=== PATIENT | female | born 1960 | race Caucasian/White ===

== ENCOUNTER 2017-12-26 08:02 | Observation (INO) ==
[2017-12-26] MEDS ORDERED: Ipratropium/Albuterol Neb 3 ML IH ONE ×2 (08:25→09:43)
[2017-12-26] MEDS ORDERED: methylPREDNISolone 125 MG/2 ML VIAL IM ONE (08:25)
--- NOTE | 2017-12-26 09:00 | Emergency Department Note ---
Disposition Clinical Impression: Bronchitis Dyspnea Qualifiers: Dyspnea type: shortness of breath Qualified Code(s): R06.02 - Shortness of breath; R06.00 - Dyspnea, unspecified; R06.01 - Orthopnea Disposition: Admitted As Inpatient Condition: Fair Forms: ED Satisfaction Letter SOB HPI - General Chief Complaint: ED Shortness of Breath/Dyspnea Stated Complaint: KATH Time Seen by Provider: 12/26/17 08:06 Source: patient Mode of arrival: private vehicle Limitations: no limitations Nursing Notes Reviewed: Yes Vital Signs Reviewed: Yes - History of Present Illness Pt Subjective Complaint: shortness of breath, cough Onset (ago): week(s) (2) Context: recent illness ("Bronchitis" Dx a week ago, Rx Prednisone, Albuterol and Zpack - completed) Severity: moderate Consistency/Duration: constant Improves with: nothing Worsens with: coughing Known history of: other (none) Associated symptoms: Reports: cough, wheezing, sputum production. Denies: chest pain, pain with inspiration, fever, orthopnea, lower extremity pain, polyuria, polydipsia, parasthesias, palpitations, hemoptysis, diaphoresis, nausea/vomiting, syncope, abdominal pain, rash, sense of impending doom, other Treatment prior to arrival: bronchodilator Cough present: Yes Cough Description: Voluntary, Involuntary, Productive, Hacking, Strong, Rattling , Wheezy Cough Frequency: Continuous Sputum production: Yes Sputum Amount: Small Sputum Color: Yellow - Related Data Home oxygen amount: none Home Medications Medication Instructions Recorded Confirmed ALPRAZolam [Xanax 0.5 MG Tablet] 0.5 mg PO HS 12/26/17 12/26/17 Albuterol Sulfate [Proair Hfa] 1 - 2 puff IH Q4-6H PRN 12/26/17 12/26/17 Allergies Allergy/AdvReac Type Severity Reaction Status Date / Time codeine AdvReac Itching Verified 12/26/17 10:54 All systems ED: reviewed and negative except as stated. Review of Systems: As Per HPI Constitutional: Denies: fever, chills, weakness, weight change, night sweats Eyes: Denies: eye pain, eye discharge, vision change ENT ED: Denies: ear pain, congestion Cardiovascular: Reports: dyspnea on exertion. Denies: chest pain, palpitations , orthopnea, edema, syncope Respiratory: Reports: as per HPI, cough, dyspnea, wheezes, sputum production. Denies: hemoptysis, stridor Gastrointestinal: Denies: abdominal pain, nausea, vomiting, diarrhea Musculoskeletal: Denies: back pain, neck pain, joint swelling Neurological: Denies: headache, weakness, numbness, paresthesias Psychiatric: Reports: anxiety Endocrine: Reports: fatigue Hematological/Lymphatic: Denies: easy bleeding, easy bruising Past Medical History - Past Medical History Attestation: Yes The following information was validated with the patient. 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 Absent: scleral icterus, conjunctival injection, periorbital swelling - ENT ENT exam: mucous membranes moist - Neck Neck exam: Present: normal inspection, full ROM, trachea midline. Absent: tenderness, meningismus, lymphadenopathy - Chest Chest inspection: Present: normal inspection, symmetric chest wall rise - Respiratory Respiratory exam: Present: wheezes, prolonged expiratory phase. Absent: respiratory distress, stridor, accessory muscle use - Expanded Respiratory Exam Location: wheezes: Left, Right, Upper - Cardiovascular Cardiovascular exam: Present: normal rhythm, tachycardia, normal heart sounds. Absent: systolic murmur, diastolic murmur - Extremities Exam Extremities exam: Present: normal inspection, full ROM, normal capillary refill. Absent: pedal edema, calf tenderness - Back Exam Back exam: Present: normal inspection - Neurological Exam Neurological exam: Present: alert, oriented X3, CN II-XII intact, normal gait - Psychiatric Psychiatric exam: Present: normal affect, anxious - Skin Skin exam: Present: warm, dry, intact, normal color Course Vital Signs Temperature 98 F 12/26/17 08:03 Pulse Rate 117 12/26/17 08:03 Respiratory Rate 20 12/26/17 08:03 Blood Pressure 152/86 12/26/17 08:03 O2 Sat by Pulse Oximetry 94 12/26/17 08:03 Temperature 98 F 12/26/17 08:03 Pulse Rate 103 12/26/17 08:44 Respiratory Rate 20 12/26/17 08:44 Blood Pressure 103/73 12/26/17 08:44 O2 Sat by Pulse Oximetry 99 12/26/17 08:44 Oxygen Delivery Oxygen Delivery Aerosol Mask Shortness of Breath/Dyspnea - Medical Records Medical records reviewed: Yes I reviewed the patient's medical records. - Lab Data Lab results reviewed: Yes I reviewed the patient's lab results. Lab results narrative: Laboratory Last Values WBC 16.1 K/mcL (4.3-11.1) H 12/26/17 10:19 RBC 5.10 M/mcL (3.82-4.97) H 12/26/17 10:19 Hgb 15.6 g/dL (11.5-15.4) H 12/26/17 10:19 Hct 46.5 % (35.3-44.9) H 12/26/17 10:19 MCV 91.2 fL (83.0-100.0) 12/26/17 10:19 MCH 30.6 pg (28.0-33.3) 12/26/17 10:19 MCHC 33.5 g/dL (31.6-35.5) 12/26/17 10:19 RDW 14.0 % (11.5-14.5) 12/26/17 10:19 Plt Count 281 K/mcL (140-400) 12/26/17 10:19 MPV 11.1 fL (9.4-12.4) 12/26/17 10:19 Immature Gran % 0.4 % (0-4) 12/26/17 10:19 Seg Neutrophils % 75.3 % 12/26/17 10:19 Lymphocytes % 14.4 % 12/26/17 10:19 Monocytes % 2.8 % 12/26/17 10:19 Eosinophils % 6.5 % 12/26/17 10:19 Basophils % 0.6 % 12/26/17 10:19 Neutrophils # 12.1 K/mcL (1.6-8.9) H 12/26/17 10:19 Lymphocytes # 2.3 K/mcL (0.6-4.6) 12/26/17 10:19 Monocytes # 0.5 K/mcL (0.0-1.3) 12/26/17 10:19 Eosinophils # 1.0 K/mcL (0.0-0.6) H 12/26/17 10:19 Basophils # 0.1 K/mcL (0.0-0.2) 12/26/17 10:19 D-Dimer 429 ng/mLFEU (0-500) 12/26/17 10:19 Sodium 139 mEq/L (136-145) 12/26/17 10:19 Potassium 3.9 mEq/L (3.5-5.1) 12/26/17 10:19 Chloride 106 mEq/L (98-107) 12/26/17 10:19 Carbon Dioxide 25 mEq/L (23-29) 12/26/17 10:19 BUN 10 mg/dL (6-20) 12/26/17 10:19 Creatinine 0.59 mg/dL (0.60-1.20) L 12/26/17 10:19 Est GFR ( Amer) > 60 (> 60) 12/26/17 10:19 Est GFR (Non-Af Amer) > 60 (> 60) 12/26/17 10:19 BUN/Creatinine Ratio 17 (6-26) 12/26/17 10:19 Glucose 148 mg/dL (70-105) H 12/26/17 10:19 Calculated Osmolality 290 (280-300) 12/26/17 10:19 Lactic Acid 1.4 mmol/L (0.5-2.2) 12/26/17 10:18 Calcium 9.7 mg/dL (8.6-10.3) 12/26/17 10:19 Troponin I < 0.03 ng/mL (< 0.04) 12/26/17 10:19 B-Natriuretic Peptide 10 pg/mL (Less than 100) 12/26/17 10:19 - Radiology Data Radiology results reviewed: Yes I reviewed the patient's radiology results. Chest X-Ray 12/26/17 08:27 IMPRESSION: No acute process. D/ / Stu Martinez MD / Stu Martinez MD Interpreting Provider: Stu Martinez MD - EKG Data EKG attestation: Yes I reviewed and interpreted this EKG. EKG shows normal: Reports: sinus rhythm Rate: Reports: normal Rhythm: Reports: NSR [place]/QRS: Reports: normal When compared to previous EKG there are: previous EKG unavailable Interpretation: Reports: normal EKG
[2017-12-26] MEDS ORDERED: 0.9 % Sodium Chloride 1,000 ML IVC ONE ×2 (09:43→12:35)
[2017-12-26] MEDS ORDERED: Levofloxacin 750 MG/150 ML 750 MG/150 ML BAG IVPB ONE (09:43)
--- NOTE | 2017-12-26 09:53 | Emergency Department Note ---
Disposition Clinical Impression: Dyspnea, Bronchitis Disposition: Admitted As Inpatient Condition: Fair General Adult HPI - General Chief complaint: ED Shortness of Breath/Dyspnea Stated complaint: KATH Time Seen by Provider: 12/26/17 08:06 Source: patient Limitations: no limitations - History of Present Illness Pain Scale: 0 - Related Data Home Medications Medication Instructions Recorded Confirmed ALPRAZolam [Xanax 0.5 MG Tablet] 0.5 mg PO HS 12/26/17 12/26/17 Albuterol Sulfate [Proair Hfa] 1 - 2 puff IH Q4-6H PRN 12/26/17 12/26/17 Allergies Allergy/AdvReac Type Severity Reaction Status Date / Time codeine AdvReac Itching Verified 12/26/17 10:54 Past Medical History - Past Medical History Medical history: Reports: no medical history - Social History Smoking Status: Current every day smoker Smokeless Tobacco Status: No Alcohol use: Reports: none Drug use: Reports: none Physical Exam - General Limitations: no limitations General appearance: alert, in distress Course Vital Signs Temperature 98 F 12/26/17 08:03 Pulse Rate 117 12/26/17 08:03 Respiratory Rate 20 12/26/17 08:03 Blood Pressure 152/86 12/26/17 08:03 O2 Sat by Pulse Oximetry 94 12/26/17 08:03 Temperature 98.1 F 12/26/17 13:38 Pulse Rate 104 12/26/17 13:38 Respiratory Rate 18 12/26/17 13:38 Blood Pressure 120/75 12/26/17 13:38 O2 Sat by Pulse Oximetry 92 12/26/17 13:38 Oxygen Delivery Oxygen Delivery Room Air,Nasal Cannula Medical Decision Making - Lab Data Result diagrams: 12/26/17 10:19 12/26/17 10:19 Lab Results 12/26/17 12/26/17 12/26/17 Range/Units 10:18 10:19 10:19 WBC 16.1 H (4.3-11.1) K/mcL RBC 5.10 H (3.82-4.97) M/mcL Hgb 15.6 H (11.5-15.4) g/dL Hct 46.5 H (35.3-44.9) % MCV 91.2 (83.0-100.0) fL MCH 30.6 (28.0-33.3) pg MCHC 33.5 (31.6-35.5) g/dL RDW 14.0 (11.5-14.5) % Plt Count 281 (140-400) K/mcL MPV 11.1 (9.4-12.4) fL Immature Gran % 0.4 (0-4) % Seg Neutrophils % 75.3 % Lymphocytes % 14.4 % Monocytes % 2.8 % Eosinophils % 6.5 % Basophils % 0.6 % Neutrophils # 12.1 H (1.6-8.9) K/mcL Lymphocytes # 2.3 (0.6-4.6) K/mcL Monocytes # 0.5 (0.0-1.3) K/mcL Eosinophils # 1.0 H (0.0-0.6) K/mcL Basophils # 0.1 (0.0-0.2) K/mcL D-Dimer (0-500) ng/mLFEU Sodium 139 (136-145) mEq/L Potassium 3.9 (3.5-5.1) mEq/L Chloride 106 (98-107) mEq/L Carbon Dioxide 25 (23-29) mEq/L BUN 10 (6-20) mg/dL Creatinine 0.59 L (0.60-1.20) mg/dL Est GFR ( Amer) > 60 (> 60) Est GFR (Non-Af Amer) > 60 (> 60) BUN/Creatinine Ratio 17 (6-26) Glucose 148 H (70-105) mg/dL Calculated Osmolality 290 (280-300) Lactic Acid 1.4 (0.5-2.2) mmol/L Calcium 9.7 (8.6-10.3) mg/dL Troponin I (< 0.04) ng/mL B-Natriuretic Peptide (Less than 100) pg/mL 12/26/17 12/26/17 12/26/17 Range/Units 10:19 10:19 10:19 WBC (4.3-11.1) K/mcL RBC (3.82-4.97) M/mcL Hgb (11.5-15.4) g/dL Hct (35.3-44.9) % MCV (83.0-100.0) fL MCH (28.0-33.3) pg MCHC (31.6-35.5) g/dL RDW (11.5-14.5) % Plt Count (140-400) K/mcL MPV (9.4-12.4) fL Immature Gran % (0-4) % Seg Neutrophils % % Lymphocytes % % Monocytes % % Eosinophils % % Basophils % % Neutrophils # (1.6-8.9) K/mcL Lymphocytes # (0.6-4.6) K/mcL Monocytes # (0.0-1.3) K/mcL Eosinophils # (0.0-0.6) K/mcL Basophils # (0.0-0.2) K/mcL D-Dimer 429 (0-500) ng/mLFEU Sodium (136-145) mEq/L Potassium (3.5-5.1) mEq/L Chloride (98-107) mEq/L Carbon Dioxide (23-29) mEq/L BUN (6-20) mg/dL Creatinine (0.60-1.20) mg/dL Est GFR ( Amer) (> 60) Est GFR (Non-Af Amer) (> 60) BUN/Creatinine Ratio (6-26) Glucose (70-105) mg/dL Calculated Osmolality (280-300) Lactic Acid (0.5-2.2) mmol/L Calcium (8.6-10.3) mg/dL Troponin I < 0.03 (< 0.04) ng/mL B-Natriuretic Peptide 10 (Less than 100) pg/mL Attestation Statement - Attestation Attestation: For this encounter, I have reviewed the OFFICE RECEPTIONIST or PA documentation, treatment plan, and medical decision making; and I have had face to face time with this patient. [id number] time provided Patient to be admitted for new onset suspected COPD
[2017-12-26 10:33] LABS: Basophils # 0.1 K/mcL (0.0-0.2); Basophils % 0.6 %; Eosinophils % 6.5 %; Hematocrit 46.5 % (35.3-44.9); Hemoglobin 15.6 g/dL (11.5-15.4); Immature Granulocytes % 0.4 % (0-4); Lymphocytes # 2.3 K/mcL (0.6-4.6); Lymphocytes % 14.4 %; Mean Corpuscular HGB Conc 33.5 g/dL (31.6-35.5); Mean Corpuscular Hemoglobin 30.6 pg (28.0-33.3); Mean Corpuscular Volume 91.2 fL (83.0-100.0); Mean Platelet Volume 11.1 fL (9.4-12.4); Monocytes # 0.5 K/mcL (0.0-1.3); Monocytes % 2.8 %; Neutrophils # 12.1 K/mcL (1.6-8.9); Platelet Count 281 K/mcL (140-400); Segmented Neutrophils % 75.3 %
[2017-12-26 10:50] LABS: BUN/Creatinine Ratio 17 (6-26); Blood Urea Nitrogen 10 mg/dL (6-20); Calcium 9.7 mg/dL (8.6-10.3); Carbon Dioxide 25 mEq/L (23-29); Chloride 106 mEq/L (98-107); Glucose 148 mg/dL (70-105); Osmolality,Calculated 290 (280-300); Potassium 3.9 mEq/L (3.5-5.1); Sodium 139 mEq/L (136-145); eGFR For Non-African Americans > 60 (> 60)
[2017-12-26] MEDS ORDERED: Albuterol 2.5 MG/3 ML NEBULIZER IH PRN (10:57)
[2017-12-26] MEDS ORDERED: Naloxone 0.4 MG/ML INJ IVP PRN (10:57)
[2017-12-26] MEDS ORDERED: Acetaminophen 325 MG TABLET PO PRN (10:57)
[2017-12-26] MEDS ORDERED: *HR* HYDROcodone/Acet 5/325 mg TABLET PO PRN (10:57)
--- NOTE | 2017-12-26 11:00 | Internal Med History&Physical ---
Date of Encounter: 12/26/17 Time of Encounter: 12:24 Assessment and Plan (1) COPD exacerbation Current visit: Yes Status: Acute suspected hx of COPD based on tobacco use Continue steroids, duonebs q4 HANS, albuterol q2h prn Continue levaquin 500mg daily Continue O2 supplement (2) Hypoxia Current visit: Yes Status: Acute as above Qualify for home O2 prior to discharge (3) Tobacco abuse Current visit: Yes Status: Chronic encourage cessation NRT (4) DVT prophylaxis Current visit: Yes Status: Acute Heparin SQ (5) Anxiety Current visit: Yes Status: Chronic resume home meds after confirmation Internal Medicine - H&P: HPI Chief complaint: Shortness of breath Admitted From: Home Plans for Post Hospital Care: Home History of present illness: Ms. Fisher is a 57 year old female with nonspecific medical history presented to the ER with complaints of worsening shortness of breath and cough productive of white phlegm. The patient reports that she was recently diagnosed with bronchitis by her primary care doctor during the week and started on Z-Von, and steroids. She had reported that her breathing continues to get worse. She presented to the hospital. She denies rhinorrhea, she denies myalgias, she denies sore throat, she denies sick contacts. She denies fever or chills. She denies chest pain. She denies nausea vomiting or abdominal discomfort. No change in bowel or urinary habits. She reports history of smoking 1 pack per day of tobacco use since her teenage years. In the ER revealed leukocytosis, polycythemia, normal d-dimer, lactic acid normal and unremarkable chemistry. BNP is normal troponin is negative. Chest x -ray is not remarkable for infiltrates. She received Solu-Medrol IV and DuoNeb. The ER, however she remained hypoxic on exertion with oxygen saturation dropping to the 80s. She will be admitted to observation for COPD exacerbation, and hypoxia. She will require pulmonary function tests as outpatient to establish diagnoses and level of severity. Past Med Surg Social Fam HX - Past Medical History Medical history: no medical history - Social History Smoking Status: Current every day smoker Smokeless Tobacco Status: No Alcohol use: none Drug use: none Internal Medicine - H&P: Meds ALPRAZolam [Xanax 0.5 MG Tablet] 0.5 mg PO HS 12/26/17 [History] Albuterol Sulfate [Proair Hfa] 1 - 2 puff IH Q4-6H PRN 12/26/17 [History] 3 Allergy/AdvReac Type Severity Reaction Status Date / Time codeine AdvReac Itching Verified 12/26/17 10:54 All Systems PM: A 10-system review of systems was performed and is negative for pertinent findings except as documented above in the HPI. - Constitutional Constitutional: as per HPI - EENT Eyes: as per HPI Ears: as per HPI Nose, mouth and throat: as per HPI - Cardiovascular Cardiovascular ROS IM: as per HPI - Respiratory Respiratory: as per HPI - Gastrointestinal Gastrointestinal: as per HPI - Genitourinary Genitourinary: as per HPI - Musculoskeletal Musculoskeletal ROS IM: as per HPI - Integumentary Integumentary IM: as per HPI - Neurological Neurological ROS: as per HPI - Hematologic/Lymphatic Hematologic/Lymphatic: as per HPI - Constitutional Vitals: Temp Pulse Resp BP Pulse Ox 98 F 98 18 130/75 95 12/26/17 08:03 12/26/17 10:20 12/26/17 10:31 12/26/17 10:20 12/26/17 10:31 General appearance: Present: mild distress, A&O X 3, pleasant - Head Head exam: Present: atraumatic, normocephalic - Eye Eye exam: Present: PERRL, conjuntiva pink, sclera anicteric Pupils: Present: PERRL - Neck Neck exam general surgery: Present: supple, trachea midline. Absent: lymphadenopathy - Respiratory Respiratory exam: Present: wheezes (few expiratory scattered wheezes). Absent: rales, rhonchi, stridor, tachypnea - Cardiovascular Cardiovascular exam: Present: RRR, +S1, +S2, tachycardia. Absent: diastolic murmur, gallop, rubs, systolic murmur - GI/Abdominal GI/Abdominal exam: Present: normal bowel sounds, soft, no peritoneal signs. Absent: distended, tenderness - Extremities Exam Extremities exam: Present: warm, radial pulses palpable and symmetrical. Absent : calf tenderness, cyanotic, pedal edema Additional comments: Finger clubbing - Neurological Exam Neurological exam: Present: alert, CN II-XII intact, oriented X3, no focal deficits. Absent: pronater drift, facial droop, speech deficit - Skin Skin exam: Present: dry, intact Internal Med - H&P Results - Labs CBC & Chem 7: 12/26/17 10:19 12/26/17 10:19 Labs: Short CBC 12/26/17 Range/Units 10:19 WBC 16.1 H (4.3-11.1) K/mcL Hgb 15.6 H (11.5-15.4) g/dL Hct 46.5 H (35.3-44.9) % Plt Count 281 (140-400) K/mcL Neutrophils # 12.1 H (1.6-8.9) K/mcL BMP 12/26/17 10:19 Sodium 139 Potassium 3.9 Chloride 106 Carbon Dioxide 25 BUN 10 Creatinine 0.59 L Glucose 148 H Calcium 9.7 Cardiac Enzymes 12/26/17 Range/Units 10:19 Troponin I < 0.03 (< 0.04) ng/mL - Impressions ITS Impressions Chest X-Ray 12/26/17 08:27 IMPRESSION: No acute process. D/ / Stu Martinez MD / Stu Martinez MD Interpreting Provider: Stu Martinez MD
[2017-12-26] MEDS: Ipratropium/Albuterol Neb 3 ML IH SCH ×3 (11:49→22:14)
[2017-12-26 15:10] LABS: Adenovirus Not Detected (Not Detect); Bordetella Pertussis Not Detected (Not Detect); Chlamydophila pneumoniae Not Detected (Not Detect); Coronavirus 229E Not Detected (Not Detect); Coronavirus HKU1 Not Detected (Not Detect); Coronavirus NL63 Not Detected (Not Detect); Coronavirus OC43 Not Detected (Not Detect); Human Metapneumovirus Not Detected (Not Detect); Human Rhinovirus/Enterovirus Not Detected (Not Detect); Influenza A Subtype 2009 H1 Not Detected (Not Detect); Influenza A Untypeable Not Detected (Not Detect); Influenza B Not Detected (Not Detect); Mycoplasma pneumoniae Not Detected (Not Detect); Parainfluenza Virus 1 Not Detected (Not Detect); Parainfluenza Virus 2 Not Detected (Not Detect); Parainfluenza Virus 3 Not Detected (Not Detect); Parainfluenza Virus 4 Not Detected (Not Detect); Respiratory Syncytial Virus Not Detected (Not Detect)
[2017-12-26] MEDS: Nicotine 21 MG PATCH.TD24 TD SCH (16:17)
--- NOTE | 2017-12-26 20:24 | Electrocardiograph Report ---
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
[2017-12-26] MEDS: ALPRAZolam 0.5 MG TABLET PO SCH (22:35)
[2017-12-27 01:46] LABS: Basophils % 0.2 %; Eosinophils # 0.2 K/mcL (0.0-0.6); Eosinophils % 0.7 %; Hematocrit 42.4 % (35.3-44.9); Hemoglobin 14.2 g/dL (11.5-15.4); Immature Granulocytes % 0.6 % (0-4); Lymphocytes # 3.2 K/mcL (0.6-4.6); Lymphocytes % 14.9 %; Mean Corpuscular HGB Conc 33.5 g/dL (31.6-35.5); Mean Corpuscular Hemoglobin 30.5 pg (28.0-33.3); Mean Corpuscular Volume 91.2 fL (83.0-100.0); Mean Platelet Volume 11.1 fL (9.4-12.4); Monocytes # 1.2 K/mcL (0.0-1.3); Monocytes % 5.6 %; Neutrophils # 16.8 K/mcL (1.6-8.9); Platelet Count 284 K/mcL (140-400); Red Blood Count 4.65 M/mcL (3.82-4.97); Red Cell Distribution Width 14.3 % (11.5-14.5)
[2017-12-27 02:17] LABS: BUN/Creatinine Ratio 16 (6-26); Blood Urea Nitrogen 11 mg/dL (6-20); Calcium 9.2 mg/dL (8.6-10.3); Carbon Dioxide 23 mEq/L (23-29); Chloride 109 mEq/L (98-107); Glucose 162 mg/dL (70-105); Magnesium 1.9 mg/dL (1.6-2.6); Osmolality,Calculated 293 (280-300); Potassium 3.9 mEq/L (3.5-5.1); Sodium 140 mEq/L (136-145); eGFR For Non-African Americans > 60 (> 60)
[2017-12-27] MEDS: Ipratropium/Albuterol Neb 3 ML IH SCH ×5 (04:07→22:39)
[2017-12-27] MEDS: *HR* Enoxaparin 40 MG/0.4 ML SYRINGE SQ SCH (06:05)
[2017-12-27] MEDS: Nicotine 21 MG PATCH.TD24 TD SCH (09:07)
[2017-12-27] MEDS: predniSONE 20 MG TABLET PO SCH (09:08)
[2017-12-27] MEDS: Levofloxacin 500 MG/100 ML 500 MG/100 ML BAG IVPB SCH (09:08)
--- NOTE | 2017-12-27 16:51 | Internal Med Progress Note ---
Date of Encounter: 12/27/17 Time of Encounter: 10:30 - Assessment and plan (1) COPD exacerbation Current Visit: Yes Status: Acute Assessment and plan: suspected. Has not officially been diagnosed with COPD but has a long tobacco use history. Presented with shortness of breath and wheezing. Recently treated with Z-Von for suspected bronchitis outpatient. Resp PCR negative. CXR without consolidation or infiltrates. Subjectively improved on 12/27 exam however still with significant rhonchi and wheezing. Also still requiring supplemental O2. Continue steroids, IV ATB. Wean oxygen as able. (2) Hypoxia Current Visit: Yes Status: Acute Assessment and plan: does not wear oxygen at home. Now requiring supplemental O2 to maintain adequate oxygen saturations. No suspicion for pulmonary embolism as well score 0 (she has no risk factors). Suspect secondary to COPD exacerbation. Wean oxygen as able. 6 minute ambulation O2 test to see if she qualifies for home O2 (3) Leukocytosis Current Visit: Yes Status: Acute Assessment and plan: WBC peaked at 21K. suspect secondary to steroids. Has been intermittently tachycardia which I suspect is secondary to albuterol. No hypotension. Afebrile. Appear acutely toxic. Continue IV ATB for COPD exacerbation. Blood cultures, lactic acid pending Qualifiers: Leukocytosis type: unspecified Qualified Code(s): D72.829 - Elevated white blood cell count, unspecified (4) DVT prophylaxis Current Visit: Yes Status: Acute Assessment and plan: heparin - Subjective Interval history: Seen and examined at bedside. Patient is due to be. Information obtained from chart review and patient report. Still with shortness of breath and wheezing but overall significantly improved. She would like to go home today however she is agreeable to stay overnight for continued IV ATB and steroids. No chest pain. She is a current smoker and cessation advised. - Constitutional Vitals: Temp Pulse Resp BP Pulse Ox 98.0 F 98 17 118/77 92 12/27/17 15:49 12/27/17 15:49 12/27/17 15:49 12/27/17 15:49 12/27/17 15:49 General appearance: Present: A&O X 3, pleasant - Head Head exam: Present: atraumatic, normocephalic - Eye Eye exam: Present: PERRL, conjuntiva pink, sclera anicteric Pupils: Present: PERRL - Neck Neck exam general surgery: Present: supple, trachea midline. Absent: lymphadenopathy - Respiratory Respiratory exam: Present: CTAB, rhonchi, wheezes. Absent: accessory muscle use , rales - Cardiovascular Cardiovascular exam: Present: RRR, +S1, +S2. Absent: diastolic murmur, gallop, rubs, systolic murmur - GI/Abdominal GI/Abdominal exam: Present: normal bowel sounds, soft, no peritoneal signs. Absent: distended, tenderness - Extremities Exam Extremities exam: Present: warm, radial pulses palpable and symmetrical. Absent : calf tenderness, cyanotic, pedal edema - Neurological Exam Neurological exam: Present: CN II-XII intact, oriented X3, no focal deficits. Absent: pronater drift, facial droop, speech deficit - Skin Skin exam: Present: dry, intact Internal Medicine: Result - Labs CBC & Chem 7: 12/27/17 01:08 12/27/17 01:08 Labs: Short CBC 12/27/17 Range/Units 01:08 WBC 21.5 H (4.3-11.1) K/mcL Hgb 14.2 (11.5-15.4) g/dL Hct 42.4 (35.3-44.9) % Plt Count 284 (140-400) K/mcL Neutrophils # 16.8 H (1.6-8.9) K/mcL BMP 12/27/17 01:08 Sodium 140 Potassium 3.9 Chloride 109 H Carbon Dioxide 23 BUN 11 Creatinine 0.67 Glucose 162 H Calcium 9.2 - ABG Interpretation ABG results: PT/INR, D-dimer D-Dimer 429 ng/mLFEU (0-500) 12/26/17 10:19 Consult Discharge Plan - Plan Referrals: Candy Akhtar CNP [Primary Care Provider] - Oriana Duarte CNP [Family Provider] -
[2017-12-27] MEDS: ALPRAZolam 0.5 MG TABLET PO SCH (20:07)
[2017-12-27] MEDS ORDERED: Melatonin 3 MG TABLET PO PRN (21:25)
[2017-12-28] MEDS: Ipratropium/Albuterol Neb 3 ML IH SCH ×2 (05:26→10:15)
[2017-12-28 05:54] LABS: Hematocrit 43.3 % (35.3-44.9); Hemoglobin 14.3 g/dL (11.5-15.4); Mean Corpuscular Hemoglobin 30.4 pg (28.0-33.3); Mean Corpuscular Volume 91.9 fL (83.0-100.0); Mean Platelet Volume 11.1 fL (9.4-12.4); Platelet Count 263 K/mcL (140-400); Red Blood Count 4.71 M/mcL (3.82-4.97); Red Cell Distribution Width 14.3 % (11.5-14.5)
[2017-12-28] MEDS: *HR* Enoxaparin 40 MG/0.4 ML SYRINGE SQ SCH (06:16)
[2017-12-28 07:52] VITALS: BP 110/77
[2017-12-28] MEDS: Levofloxacin 500 MG/100 ML 500 MG/100 ML BAG IVPB SCH (08:01)
[2017-12-28] MEDS: Nicotine 21 MG PATCH.TD24 TD SCH (08:01)
[2017-12-28] MEDS: predniSONE 20 MG TABLET PO SCH (08:01)
--- NOTE | 2017-12-28 09:14 | Discharge Summary ---
<Tc Malhotra - Last Filed: 12/28/17 09:17> - NOTES TO OUTPATIENT PROVIDER Notes to Outpatient Provider: Admitted for AECOPD. Likely need outpatient PFT testing. Recommend tobacco cessation. Orders not resulted at time of discharge: Pending orders 12/28/17 05:38 Culture,Blood [BC] AM 0400 Culture,Blood,Additional [BC] AM 0400 Date of Encounter: 12/28/17 Time of Encounter: 08:15 - Discharge Diagnosis (1) COPD exacerbation Priority: Primary Status: Acute (2) Bronchitis Priority: Secondary Status: Acute (3) Hypoxia Priority: Secondary Status: Acute (4) Leukocytosis Priority: Secondary Status: Acute Qualifiers: Leukocytosis type: unspecified Qualified Code(s): D72.829 - Elevated white blood cell count, unspecified (5) Tobacco abuse Priority: Secondary Status: Chronic (6) DVT prophylaxis Priority: Secondary Status: Acute Hospital course: Ms. Fisher is a 57 year old female admitted for COPD exacerbation secondary to acute bronchitis. Nonspecific medical history presented to the ER with complaints of worsening shortness of breath and cough productive of white phlegm. Patient diagnosed as outpatient with bronchitis by her primary care doctor during the week and started on Z-Von and oral steroids taper. She presented to ED for worsening breathing. She reports history of smoking 1 pack per day of tobacco use since her teenage years. In the ER revealed leukocytosis 16.1, polycythemia HGB 15.6, normal d-dimer, lactic acid normal and unremarkable chemistry. BNP normal, troponin negative. Chest x-ray is not remarkable for infiltrates. Patient was started on IV levaquin, Solu-Medrol IV, and DuoNeb treatments along with supplemental O2 as she remained hypoxic on exertion with oxygen saturation dropping to the 80s. Patient improved and was wean to room ai, IV steroids transitioned to PO. Patient will likely require outpatient PFT testing as she did not previously have a diagnosis of COPD, Will arrange pulm follow up. Patient interested in smoking cessation, will send patient with script for nicotine replace. Patient also noted hx of yest infection with abx use, prescribed one dose fluconazole if needed after completion of antibiotic. Currently patient denies chest pain, dypnea, or acute distress; stating she feels comfortable to go home. Plan to taper steroids and complete antibiotic course with oral levaquin. Discharge discussed with: patient Time spent discussing smoking cessation with patient: 3 to 10 minutes - Time Spent with Patient Total time spent providing and/or coordinating discharge services: Greater than 30 minutes (40mins) - Discharge Medications Prescriptions: Fluconazole [Diflucan] 150 mg PO ONCE #1 tab levoFLOXacin [Levaquin] 500 mg PO DAILY #3 tablet Nicotine Patch [Nicoderm] 21 mg TD DAILY #30 patch.td24 predniSONE [PredniSONE] 10 mg PO AD 12 Days #30 tablet Home Medications: ALPRAZolam [Xanax 0.5 MG Tablet] 0.5 mg PO HS 12/26/17 [History] Albuterol Sulfate [Proair Hfa] 1 - 2 puff IH Q4-6H PRN 12/26/17 [History] Fluconazole [Diflucan] 150 mg PO ONCE #1 tab 12/28/17 [Rx] Nicotine Patch [Nicoderm] 21 mg TD DAILY #30 patch.td24 12/28/17 [Rx] levoFLOXacin [Levaquin] 500 mg PO DAILY #3 tablet 12/28/17 [Rx] predniSONE [PredniSONE] 10 mg PO AD 12 Days #30 tablet 12/28/17 [Rx] Allergies/Adverse Reactions: 3 Allergy/AdvReac Type Severity Reaction Status Date / Time codeine AdvReac Itching Verified 12/26/17 10:54 Date of admission: 12/26/17 12:41 Primary care physician: Candy Akhtar CNP Discharging clinician: Andrey Leyva Anticipated date of discharge: 12/28/17 - Constitutional Vitals: Temp Pulse Resp BP Pulse Ox 98.3 F 93 16 110/77 94 12/28/17 07:49 12/28/17 07:49 12/28/17 07:49 12/28/17 07:49 12/28/17 07:49 General appearance: Present: cooperative, A&O X 3, pleasant, answers questions appropriately - Head Head exam: Present: atraumatic, normocephalic - Eye Eye exam: Present: EOMI, conjuntiva pink, sclera anicteric - Neck Neck exam general surgery: Present: full ROM, supple, trachea midline - Respiratory Respiratory exam: Present: CTAB. Absent: accessory muscle use, rales, rhonchi, wheezes - Cardiovascular Cardiovascular exam: Present: RRR, +S1, +S2. Absent: diastolic murmur, gallop, rubs, systolic murmur - GI/Abdominal GI/Abdominal exam: Present: normal bowel sounds, soft, no peritoneal signs. Absent: distended, tenderness - Extremities Exam Extremities exam: Present: warm. Absent: calf tenderness, cyanotic, pedal edema - Neurological Exam Neurological exam: Present: alert, oriented X3, no focal deficits. 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 Plan for outpatient follow up with Pulmonology, likely will need pulmonary function testing. Continue albuterol inhaler or home duonebs as needed. Please complete antibiotic and steroid taper. Return or seek medical care for new or worsening symptoms such as shortness of breath, chest pain, confusion, or fever. - Diet and Activity Activity: increase activity as tolerated, resume usual activities as tolerated Diet: advance to your usual diet <Andrey Leyva H - Last Filed: 12/28/17 13:50> Orders not resulted at time of discharge: Pending orders 12/28/17 05:38 Culture,Blood [BC] AM 0400 Culture,Blood,Additional [BC] AM 0400 Date of Encounter: 12/28/17 Hospital course: Ms. Fisher is a 57 year old female - Time Spent with Patient Total time spent providing and/or coordinating discharge services: Date of admission: 12/26/17 12:41 Primary care physician: Candy Akhtar CNP - Constitutional Vitals: Temp Pulse Resp BP Pulse Ox 98.3 F 93 16 110/77 98 12/28/17 07:49 12/28/17 07:49 12/28/17 10:15 12/28/17 07:49 12/28/17 10:15 - Attending Attestation acute COPD exacerbation due to acute bacterial bronchitis I examined this patient and my medical decision-making was reviewed with the Resident Physician. I agree with the documented findings, disposition and treatment plan as described except to the extent set forth below.
== END 2017-12-28 11:51 | disposition home or self-care (01) ==
LOC: 3NENU 08:02 → EMEROO 08:02 → 3NENU 13:20 → 2ANU 12-27 11:06
PROVIDERS: ADMIT Internal Medicine; ATTEND Family Medicine

== ENCOUNTER 2018-01-31 08:19 | Inpatient (IN) ==
[2018-01-31] MEDS ORDERED: Ipratropium/Albuterol Neb 3 ML IH ONE (08:32)
[2018-01-31] MEDS ORDERED: methylPREDNISolone 125 MG/2 ML VIAL IVP ONE (08:34)
[2018-01-31 09:00] LABS: Basophils # 0.1 K/mcL (0.0-0.2); Basophils % 0.5 %; Eosinophils # 2.7 K/mcL (0.0-0.6); Eosinophils % 17.3 %; Hematocrit 45.4 % (35.3-44.9); Hemoglobin 15.3 g/dL (11.5-15.4); Immature Granulocytes % 0.3 % (0-4); Lymphocytes # 2.5 K/mcL (0.6-4.6); Lymphocytes % 15.8 %; Mean Corpuscular HGB Conc 33.7 g/dL (31.6-35.5); Mean Corpuscular Hemoglobin 30.5 pg (28.0-33.3); Mean Corpuscular Volume 90.4 fL (83.0-100.0); Mean Platelet Volume 10.9 fL (9.4-12.4); Monocytes # 0.8 K/mcL (0.0-1.3); Monocytes % 5.3 %; Neutrophils # 9.4 K/mcL (1.6-8.9); Platelet Count 295 K/mcL (140-400); Red Blood Count 5.02 M/mcL (3.82-4.97); Red Cell Distribution Width 13.4 % (11.5-14.5); Segmented Neutrophils % 60.8 %
[2018-01-31 09:25] LABS: Alanine Aminotransferase 22 Units/L (7-52); Albumin 4.5 g/dL (3.5-5.7); Albumin/Globulin Ratio 1.3 (1.1-2.2); Alkaline Phosphatase 81 Units/L (34-104); Aspartate Amino Transferase 18 Units/L (13-39); BUN/Creatinine Ratio 12 (6-26); Bilirubin,Total 0.5 mg/dL (0.3-1.0); Blood Urea Nitrogen 8 mg/dL (6-20); Calcium 9.8 mg/dL (8.6-10.3); Carbon Dioxide 24 mEq/L (23-29); Chloride 108 mEq/L (98-107); Globulin 3.6 g/dL (2.4-3.5); Glucose 118 mg/dL (70-105); Osmolality,Calculated 291 (280-300); Potassium 3.9 mEq/L (3.5-5.1); Sodium 141 mEq/L (136-145); Total Protein 8.1 g/dL (6.4-8.9); Troponin I < 0.03 ng/mL (< 0.04); eGFR For African Americans > 60 (> 60); eGFR For Non-African Americans > 60 (> 60)
[2018-01-31] MEDS ORDERED: Levofloxacin 750 MG/150 ML 750 MG/150 ML BAG IVPB ONE (09:35)
--- NOTE | 2018-01-31 09:41 | Emergency Department Note ---
Disposition Clinical Impression: Pneumonia Qualifiers: Pneumonia type: due to unspecified organism Laterality: unspecified laterality Lung location: unspecified part of lung Qualified Code(s): J18.9 - Pneumonia, unspecified organism Disposition: Admitted As Inpatient Condition: Fair Referrals: Candy Akhtar CNP [Primary Care Provider] - Oriana Duarte CNP [Family Provider] - Forms: ED Satisfaction Letter SOB HPI - General Chief Complaint: ED Shortness of Breath/Dyspnea Stated Complaint: KATH Time Seen by Provider: 01/31/18 08:27 Source: patient Limitations: no limitations Nursing Notes Reviewed: Yes Vital Signs Reviewed: Yes - History of Present Illness 57 year old former smoker (20 years, just quit in November this year), presents with shortness of breath for 2 days. 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 pt tried breath treatment at home every 1-2 hours without improvement. Pt denied chill and fever. Pt had Lung issue since [facility] this year. SHe followed up with imaging assistant. Pt Subjective Complaint: shortness of breath, chest pain Onset (ago): day(s) (2) Severity: severe Consistency/Duration: constant Improves with: oxygen Worsens with: lying flat Known history of: COPD Cough present: Yes Cough Description: Dry Sputum production: No - Related Data Home oxygen amount: none Home Medications Medication Instructions Recorded Confirmed ALPRAZolam [Xanax 0.5 MG Tablet] 0.5 mg PO HS 12/26/17 01/31/18 Albuterol Sulfate [Proair Hfa] 1 - 2 puff IH Q4-6H PRN 12/26/17 01/31/18 Fluticasone Propionate Nasal 2 spr NS DAILY 01/31/18 01/31/18 [Flonase] HYDROcodone BIT/Homatropine LQ 5 mg PO Q6H PRN 01/31/18 01/31/18 [Hycodan Syrup] Tiotropium Br/Olodaterol HCl 2 puff IH DAILY 01/31/18 01/31/18 [Stiolto Respimat Inhal [place]] Previous Rx's Medication Instructions Recorded Nicotine Patch [Nicoderm] 21 mg TD DAILY #30 patch.td24 12/28/17 Allergies Allergy/AdvReac Type Severity Reaction Status Date / Time codeine AdvReac Itching Verified 01/31/18 08:21 Constitutional: Denies: fever, chills, weakness Eyes: Denies: eye pain, eye discharge, vision change ENT ED: Denies: ear pain, throat pain, dental pain Cardiovascular: Reports: chest pain. Denies: palpitations, dyspnea on exertion Respiratory: Reports: cough, dyspnea, wheezes Gastrointestinal: Denies: abdominal pain, nausea, vomiting Genitourinary: Denies: urgency, dysuria, frequency Musculoskeletal: Denies: back pain, neck pain Integumentary: Denies: rash, abrasion, lesions Neurological: Denies: headache, weakness Psychiatric: Denies: anxiety, depression Endocrine: Denies: fatigue, heat or cold intolerance Hematological/Lymphatic: Denies: easy bleeding, easy bruising Allergic/Immunologic: Denies: facial swelling, urticaria Past Medical History - Past Medical History Medical history: Reports: no medical history, COPD Surgical history: Reports: appendectomy, cholecystectomy, hysterectomy Psychiatric history: Reports: no psych history FASHION COORDINATOR history: Reports: no FASHION COORDINATOR history - Social History Smoking Status: Former smoker Smokeless Tobacco Status: No Alcohol use: Reports: none Drug use: Reports: none Physical Exam - General Limitations: no limitations General appearance: alert, other - Head Head exam: atraumatic, normal inspection - Eye Eye exam: Present: normal appearance. Absent: scleral icterus, conjunctival injection - ENT ENT exam: normal exam - Neck Neck exam: Present: normal inspection, full ROM, trachea midline. Absent: tenderness - Chest Chest inspection: Present: normal inspection, symmetric chest wall rise. Absent : tenderness - Respiratory Respiratory exam: Present: wheezes (bilateral lower lungs) - Cardiovascular Cardiovascular exam: Present: tachycardia - Abdominal Exam Abdominal exam: Present: soft, Non-Tender - Extremities Exam Extremities exam: Present: normal inspection, full ROM. Absent: tenderness - Back Exam Back exam: Present: normal inspection, full ROM. Absent: tenderness - Neurological Exam Neurological exam: Present: alert, oriented X3 - Psychiatric Psychiatric exam: Present: normal affect, normal mood. Absent: depressed - Skin Skin exam: Present: warm, intact Course Vital Signs Temperature 98.0 F 01/31/18 08:20 Pulse Rate 132 01/31/18 08:20 Respiratory Rate 26 01/31/18 08:20 Blood Pressure 155/96 01/31/18 08:20 O2 Sat by Pulse Oximetry 88 01/31/18 08:20 Temperature 97 F L 01/31/18 09:35 Pulse Rate 101 01/31/18 10:33 Respiratory Rate 16 01/31/18 10:33 Blood Pressure 108/67 01/31/18 10:33 O2 Sat by Pulse Oximetry 95 01/31/18 10:33 Oxygen Delivery Oxygen Delivery Nasal Cannula Shortness of Breath/Dyspnea - MDM Narrative Medical decision making narrative: 57 year old female with long history of smoking presents with shortness of breath for 2 days, worsening at night, no improvement with breath treatment at home, no chill and fever, physical exam: Heart rate 135, O2 sat 88 in room air, bilateral lower lungs wheezing, Labs: white cell 15 and left shifted, chest x- ray indicated early stage Pneumonia. EKG unremarkable, troponin negative; Spoke with Hospitalist Dr. Olivarez, will admit pt. Start IV fluids and IV Levaquin in ED. Pt also was given steroids, breath treatment and Oxygen. Dr. Millan saw the patient and agrees the above plan - Lab Data Lab results reviewed: Yes I reviewed the patient's lab results. Result diagrams: 01/31/18 08:44 01/31/18 08:44 Lab Results 01/31/18 01/31/18 01/31/18 Range/Units 08:44 08:44 08:44 WBC 15.5 H (4.3-11.1) K/mcL RBC 5.02 H (3.82-4.97) M/mcL Hgb 15.3 (11.5-15.4) g/dL Hct 45.4 H (35.3-44.9) % MCV 90.4 (83.0-100.0) fL MCH 30.5 (28.0-33.3) pg MCHC 33.7 (31.6-35.5) g/dL RDW 13.4 (11.5-14.5) % Plt Count 295 (140-400) K/mcL MPV 10.9 (9.4-12.4) fL Immature Gran % 0.3 (0-4) % Seg Neutrophils % 60.8 % Lymphocytes % 15.8 % Monocytes % 5.3 % Eosinophils % 17.3 % Basophils % 0.5 % Neutrophils # 9.4 H (1.6-8.9) K/mcL Lymphocytes # 2.5 (0.6-4.6) K/mcL Monocytes # 0.8 (0.0-1.3) K/mcL Eosinophils # 2.7 H (0.0-0.6) K/mcL Basophils # 0.1 (0.0-0.2) K/mcL D-Dimer 381 (0-500) ng/mLFEU Sodium 141 (136-145) mEq/L Potassium 3.9 (3.5-5.1) mEq/L Chloride 108 H (98-107) mEq/L Carbon Dioxide 24 (23-29) mEq/L BUN 8 (6-20) mg/dL Creatinine 0.68 (0.60-1.20) mg/dL Est GFR ( Amer) > 60 (> 60) Est GFR (Non-Af Amer) > 60 (> 60) BUN/Creatinine Ratio 12 (6-26) Glucose 118 H (70-105) mg/dL Calculated Osmolality 291 (280-300) Lactic Acid (0.5-2.2) mmol/L Calcium 9.8 (8.6-10.3) mg/dL Total Bilirubin 0.5 (0.3-1.0) mg/dL AST 18 (13-39) Units/L ALT 22 (7-52) Units/L Alkaline Phosphatase 81 (34-104) Units/L Troponin I < 0.03 (< 0.04) ng/mL Serum Total Protein 8.1 (6.4-8.9) g/dL Albumin 4.5 (3.5-5.7) g/dL Globulin 3.6 H (2.4-3.5) g/dL Albumin/Globulin Ratio 1.3 (1.1-2.2) /02/14 Range/Units 08:44 WBC (4.3-11.1) K/mcL RBC (3.82-4.97) M/mcL Hgb (11.5-15.4) g/dL Hct (35.3-44.9) % MCV (83.0-100.0) fL MCH (28.0-33.3) pg MCHC (31.6-35.5) g/dL RDW (11.5-14.5) % Plt Count (140-400) K/mcL MPV (9.4-12.4) fL Immature Gran % (0-4) % Seg Neutrophils % % Lymphocytes % % Monocytes % % Eosinophils % % Basophils % % Neutrophils # (1.6-8.9) K/mcL Lymphocytes # (0.6-4.6) K/mcL Monocytes # (0.0-1.3) K/mcL Eosinophils # (0.0-0.6) K/mcL Basophils # (0.0-0.2) K/mcL D-Dimer (0-500) ng/mLFEU Sodium (136-145) mEq/L Potassium (3.5-5.1) mEq/L Chloride (98-107) mEq/L Carbon Dioxide (23-29) mEq/L BUN (6-20) mg/dL Creatinine (0.60-1.20) mg/dL Est GFR ( Amer) (> 60) Est GFR (Non-Af Amer) (> 60) BUN/Creatinine Ratio (6-26) Glucose (70-105) mg/dL Calculated Osmolality (280-300) Lactic Acid 2.2 (0.5-2.2) mmol/L Calcium (8.6-10.3) mg/dL Total Bilirubin (0.3-1.0) mg/dL AST (13-39) Units/L ALT (7-52) Units/L Alkaline Phosphatase (34-104) Units/L Troponin I (< 0.04) ng/mL Serum Total Protein (6.4-8.9) g/dL Albumin (3.5-5.7) g/dL Globulin (2.4-3.5) g/dL Albumin/Globulin Ratio (1.1-2.2) - Radiology Data Radiology results reviewed: Yes I reviewed the patient's radiology results.
[2018-01-31] MEDS ORDERED: 0.9 % Sodium Chloride 1,000 ML IVC ONE (09:42)
--- NOTE | 2018-01-31 10:05 | Emergency Department Note ---
START Narrative - START START: I examined this patient and my medical decision-making was reviewed with the Resident Physician. I agree with the documented findings, disposition and treatment plan as described except to the extent set forth below. +copd patient w/ pneumonia requiring oxygen. will admit for IV levaquin, steroids, pulm tx's blood cultures obtained
[2018-01-31] MEDS ORDERED: Naloxone 0.4 MG/ML INJ IVP PRN (12:27)
[2018-01-31] MEDS ORDERED: Acetaminophen 325 MG TABLET PO PRN (12:27)
--- NOTE | 2018-01-31 12:33 | Internal Med History&Physical ---
Date of Encounter: 01/31/18 Time of Encounter: 12:33 Internal Medicine - H&P: HPI Chief complaint: Cough, dyspnea Admitted From: Emergency Dept Plans for Post Hospital Care: Home History of present illness: Ms. Fisher is a 57 year old female with h/o- COPD and recent hospitalization for acute COPD, who presents with c/o- shortness of breath. She reports 2-3 day h/o- progressively worsening dyspnea, dry cough, chest tightness and wheezing. Dyspnea is worse on exertion. No fever, chills, chest pain, nausea, vomiting. SHe was discharged about 4 weeks ago on tapering course of steroids and Levaquin , which she has completed. SHe is now established with Pulmonology and has been started on Respimat and Flonase along with rescue inhalers and nebulizers, all of which she has been using, with no relief in symptoms. Past Med Surg Social Fam HX - Past Medical History Medical history: COPD Psychiatric history: anxiety - Past Surgical History Surgical History: appendectomy, cholecystectomy, hysterectomy - Social History Smoking Status: Former smoker (just quit since last hospitalization, on Nicotine patch) Smokeless Tobacco Status: No Alcohol use: none Drug use: none Occupational status: unemployed Current living situation: Home, With Family Activity Level: Independent ambulation Recent Out of Country Travel Within the Last 8 Weeks: No Exposure or Possible Exposure to Illness During Travel: No - Family History Mother Hx Family Cancer: Yes Hx Family Neurologic Disorders: Yes (CVA) Father Hx Family Endocrine Disorder: Yes (DM) Hx Family Neurologic Disorders: Yes (CVA) Internal Medicine - H&P: Meds ALPRAZolam [Xanax 0.5 MG Tablet] 0.5 mg PO HS 12/26/17 [History] Albuterol Sulfate [Proair Hfa] 1 - 2 puff IH Q4-6H PRN 12/26/17 [History] Nicotine Patch [Nicoderm] 21 mg TD DAILY #30 patch.td24 12/28/17 [Rx] Fluticasone Propionate Nasal [Flonase] 2 spr NS DAILY 01/31/18 [History] HYDROcodone BIT/Homatropine LQ [Hycodan Syrup] 5 mg PO Q6H PRN 01/31/18 [History ] Tiotropium Br/Olodaterol HCl [Stiolto Respimat Inhal [place]] 2 puff IH DAILY 02/14 [History] 3 Allergy/AdvReac Type Severity Reaction Status Date / Time codeine AdvReac Itching Verified 01/31/18 08:21 All Systems PM: A 10-system review of systems was performed and is negative for pertinent findings except as documented above in the HPI. - Constitutional Constitutional: no chills, no fever(s), no night sweats - EENT Eyes: no change in vision, no discharge, no pain, no photophobia Ears: no ear discharge, no ear pain, no tinnitus Nose, mouth and throat: no dysphagia, no nasal discharge, no neck pain, no sore throat - Cardiovascular Cardiovascular ROS IM: no chest pain, no diaphoresis, no dyspnea, no lightheadedness, no palpitations, no syncope - Respiratory Respiratory: cough, dyspnea, dyspnea on exertion, wheezing, chest congestion - Gastrointestinal Gastrointestinal: no abdominal pain, no diarrhea, no hematemesis, no hematochezia, no melena, no nausea, no vomiting - Genitourinary Genitourinary: no change in urinary stream, no dysuria, no flank pain, no hematuria - Musculoskeletal Musculoskeletal ROS IM: no numbness, no tingling - Integumentary Integumentary IM: no rash, no unusual bruising - Neurological Neurological ROS: no confusion, no convulsions, no focal weakness, no numbness, no tingling, no tremor(s) - Hematologic/Lymphatic Hematologic/Lymphatic: no easy bruising - Constitutional Vitals: Temp Pulse Resp BP Pulse Ox 97 F L 101 16 108/67 95 01/31/18 09:35 01/31/18 10:33 01/31/18 10:33 01/31/18 10:33 01/31/18 10:33 General appearance: Present: A&O X 3, answers questions appropriately - Respiratory Respiratory exam: Present: CTAB, rhonchi (scattered B/L). Absent: accessory muscle use, rales, wheezes - Cardiovascular Cardiovascular exam: Present: RRR, +S1, +S2, tachycardia. Absent: diastolic murmur, gallop, rubs, systolic murmur - GI/Abdominal GI/Abdominal exam: Present: normal bowel sounds, soft, no peritoneal signs. Absent: distended, tenderness - Extremities Exam Extremities exam: Present: full ROM, warm, radial pulses palpable and symmetrical. Absent: calf tenderness, cyanotic, pedal edema - Neurological Exam Neurological exam: Present: CN II-XII intact, oriented X3, no focal deficits. Absent: pronater drift, facial droop, speech deficit - Skin Skin exam: Present: dry, intact Internal Med - H&P Results - Labs CBC & Chem 7: 01/31/18 08:44 01/31/18 08:44 Labs: Short CBC 01/31/18 Range/Units 08:44 WBC 15.5 H (4.3-11.1) K/mcL Hgb 15.3 (11.5-15.4) g/dL Hct 45.4 H (35.3-44.9) % Plt Count 295 (140-400) K/mcL Neutrophils # 9.4 H (1.6-8.9) K/mcL BMP 01/31/18 08:44 Sodium 141 Potassium 3.9 Chloride 108 H Carbon Dioxide 24 BUN 8 Creatinine 0.68 Glucose 118 H Calcium 9.8 Cardiac Enzymes 01/31/18 Range/Units 08:44 Troponin I < 0.03 (< 0.04) ng/mL Liver Function 01/31/18 Range/Units 08:44 Total Bilirubin 0.5 (0.3-1.0) mg/dL AST 18 (13-39) Units/L ALT 22 (7-52) Units/L Alkaline Phosphatase 81 (34-104) Units/L Albumin 4.5 (3.5-5.7) g/dL - Impressions ITS Impressions Chest X-Ray 01/31/18 08:33 IMPRESSION: Possible early left lower lobe pneumonia D/ / Fran Garcia MD / Fran Garcia MD Interpreting Provider: Fran Garcia MD - Assessment and plan (1) COPD exacerbation Current Visit: Yes Status: Acute Assessment and plan: Chest XRay reviewed independently- hyperexpanded lung diop, chronic interstitial changes at right base; sternotomy wires intact. EKG shows sinus tachycardia; Start IV steroids, scheduled bronchodilator nebs, empiric IV antibiotics- Levaquin; f/up blood cultures; continue supplemental O2, wean down FiO2 as tolerated; home O2 evaluation prior to discharge; (2) Anxiety Current Visit: Yes Status: Chronic (3) Tobacco abuse Current Visit: Yes Status: Chronic Assessment and plan: quit smoking since 1 month, on Nicotine transdermal patch, will continue at 14g/ day; - Time Spent With Patient Total time spent is greater than 50% in coordination of care (as documented) at patient's floor/unit and/or counseling patient:
[2018-01-31] MEDS: Nicotine 14 MG PATCH.TD24 TD SCH (17:16)
[2018-01-31] MEDS: MethylPREDNISolone 40 MG/ML VIAL IVP SCH (17:16)
[2018-01-31] MEDS: Ipratropium/Albuterol Neb 3 ML IH SCH ×2 (17:46→22:05)
[2018-01-31] MEDS: ALPRAZolam 0.5 MG TABLET PO SCH (20:54)
[2018-02-01] MEDS: MethylPREDNISolone 40 MG/ML VIAL IVP SCH ×3 (01:26→22:40)
[2018-02-01 01:36] LABS: Basophils % 0.1 %; Eosinophils % 0.1 %; Hematocrit 41.7 % (35.3-44.9); Hemoglobin 14.1 g/dL (11.5-15.4); Immature Granulocytes % 0.5 % (0-4); Mean Corpuscular HGB Conc 33.8 g/dL (31.6-35.5); Mean Corpuscular Hemoglobin 30.5 pg (28.0-33.3); Mean Corpuscular Volume 90.3 fL (83.0-100.0); Mean Platelet Volume 10.9 fL (9.4-12.4); Monocytes # 0.4 K/mcL (0.0-1.3); Monocytes % 2.4 %; Neutrophils # 11.9 K/mcL (1.6-8.9); Platelet Count 295 K/mcL (140-400); Red Blood Count 4.62 M/mcL (3.82-4.97); Red Cell Distribution Width 13.6 % (11.5-14.5); Segmented Neutrophils % 82.9 %
[2018-02-01 01:53] LABS: BUN/Creatinine Ratio 18 (6-26); Blood Urea Nitrogen 11 mg/dL (6-20); Calcium 9.5 mg/dL (8.6-10.3); Carbon Dioxide 22 mEq/L (23-29); Chloride 109 mEq/L (98-107); Glucose 163 mg/dL (70-105); Osmolality,Calculated 291 (280-300); Sodium 139 mEq/L (136-145); eGFR For African Americans > 60 (> 60); eGFR For Non-African Americans > 60 (> 60)
[2018-02-01] MEDS: Ipratropium/Albuterol Neb 3 ML IH SCH ×4 (03:12→22:26)
[2018-02-01] MEDS: *HR* Enoxaparin 40 MG/0.4 ML SYRINGE SQ SCH (05:59)
[2018-02-01] MEDS ORDERED: HYDROcodone BIT/Homatropine LQ 5 MG/5 ML UDC PO PRN (08:56)
--- NOTE | 2018-02-01 08:59 | Internal Med Progress Note ---
Date of Encounter: 02/01/18 Time of Encounter: 08:59 - Assessment and plan (1) Acute respiratory failure with hypoxia Current Visit: Yes Status: Acute Assessment and plan: Pt is not on oxygen at home and is requiring supplemental oxygen here. Will wean off as able. (2) COPD exacerbation Current Visit: Yes Status: Suspected Assessment and plan: Pt has PFTs scheduled for next week. Continue steroids, abx and oxygen. CT chest today. (3) Pneumonia Current Visit: Yes Status: Suspected Assessment and plan: Continue abx. CT ordered today. Qualifiers: Pneumonia type: due to Pneumococcus Laterality: bilateral Lung location: lower lobe of lung Qualified Code(s): J13 - Pneumonia due to Streptococcus pneumoniae (4) Tobacco abuse Current Visit: Yes Status: Resolved Assessment and plan: Pt no longer smokes. Nicotine patch. (5) Anxiety Current Visit: Yes Status: Chronic Assessment and plan: Continue home meds and supportive care. - Time Spent With Patient Total time spent is greater than 50% in coordination of care (as documented) at patient's floor/unit and/or counseling patient: - Subjective Interval history: Ms Fisher is currently admitted for acute hypoxic resp failure and presumed COPD and pneumonia. She remains moderate to high risk due to potential for worsening clinical status. Ms Fisher is feeling somewhat better. She is concerned about the diagnosis of COPD without PFTs. Coughing less today. Still on oxygen. No GI issues. Anxious about testing. - Constitutional Vitals: Temp Pulse Resp BP Pulse Ox 97.7 F 113 15 113/80 95 02/01/18 07:02 02/01/18 07:02 02/01/18 07:02 02/01/18 07:02 02/01/18 07:02 General appearance: Present: A&O X 3, pleasant, answers questions appropriately - Head Head exam: Present: normocephalic - Eye Eye exam: Present: conjuntiva pink - ENT ENT exam: Present: mucous membranes moist - Respiratory Respiratory exam: Present: rhonchi, wheezes - Cardiovascular Cardiovascular exam: Present: RRR. Absent: tachycardia - GI/Abdominal GI/Abdominal exam: Present: soft. Absent: tenderness - Extremities Exam Extremities exam: Present: warm. Absent: tenderness - Neurological Exam Neurological exam: Present: alert, oriented X3, no focal deficits - Skin Skin exam: Present: dry, warm Internal Medicine: Result - Labs CBC & Chem 7: 02/01/18 01:21 02/01/18 01:21 Labs: Short CBC 02/01/18 Range/Units 01:21 WBC 14.4 H (4.3-11.1) K/mcL Hgb 14.1 (11.5-15.4) g/dL Hct 41.7 (35.3-44.9) % Plt Count 295 (140-400) K/mcL Neutrophils # 11.9 H (1.6-8.9) K/mcL BMP 02/01/18 01:21 Sodium 139 Potassium 4.0 Chloride 109 H Carbon Dioxide 22 L BUN 11 Creatinine 0.62 Glucose 163 H Calcium 9.5 Cardiac Enzymes 01/31/18 02/01/18 Range/Units 18:37 01:21 Troponin I < 0.03 < 0.03 (< 0.04) ng/mL - ABG Interpretation ABG results: PT/INR, D-dimer D-Dimer 381 ng/mLFEU (0-500) 01/31/18 08:44 Consult Discharge Plan - Plan Referrals: Candy Akhtar CNP [Primary Care Provider] - Oriana Duarte CNP [Family Provider] -
[2018-02-01] MEDS ORDERED: (Tiotropium Br/Olodaterol Hcl [Stiolto Respimat Inhal IH SCH (09:00)
[2018-02-01] MEDS: Levofloxacin 500 MG/100 ML 500 MG/100 ML BAG IVPB SCH (10:04)
[2018-02-01] MEDS: Nicotine 14 MG PATCH.TD24 TD SCH (10:04)
[2018-02-01] MEDS: Fluticasone Propionate Nasal 50 MCG/SPRAY BOTTLE NS SCH (10:06)
[2018-02-01] MEDS: ALPRAZolam 0.5 MG TABLET PO SCH (22:40)
[2018-02-02] MEDS: Ipratropium/Albuterol Neb 3 ML IH SCH ×4 (04:28→22:05)
[2018-02-02 05:24] LABS: Hematocrit 41.7 % (35.3-44.9); Hemoglobin 13.9 g/dL (11.5-15.4); Mean Corpuscular HGB Conc 33.3 g/dL (31.6-35.5); Mean Corpuscular Hemoglobin 30.6 pg (28.0-33.3); Mean Corpuscular Volume 91.9 fL (83.0-100.0); Mean Platelet Volume 11.4 fL (9.4-12.4); Platelet Count 316 K/mcL (140-400); Red Blood Count 4.54 M/mcL (3.82-4.97); Red Cell Distribution Width 13.8 % (11.5-14.5)
[2018-02-02] MEDS: *HR* Enoxaparin 40 MG/0.4 ML SYRINGE SQ SCH (05:46)
[2018-02-02 05:50] LABS: BUN/Creatinine Ratio 28 (6-26); Blood Urea Nitrogen 17 mg/dL (6-20); Calcium 9.5 mg/dL (8.6-10.3); Carbon Dioxide 23 mEq/L (23-29); Chloride 109 mEq/L (98-107); Glucose 139 mg/dL (70-105); Osmolality,Calculated 292 (280-300); Potassium 4.3 mEq/L (3.5-5.1); Sodium 139 mEq/L (136-145); eGFR For African Americans > 60 (> 60); eGFR For Non-African Americans > 60 (> 60)
[2018-02-02 06:20] LABS: Magnesium 2.1 mg/dL (1.6-2.6)
[2018-02-02] MEDS: Nicotine 14 MG PATCH.TD24 TD SCH (09:27)
[2018-02-02] MEDS: MethylPREDNISolone 40 MG/ML VIAL IVP SCH ×2 (09:29→21:03)
[2018-02-02] MEDS: Levofloxacin 500 MG/100 ML 500 MG/100 ML BAG IVPB SCH (09:29)
[2018-02-02] MEDS: Fluticasone Propionate Nasal 50 MCG/SPRAY BOTTLE NS SCH (13:30)
--- NOTE | 2018-02-02 14:27 | Internal Med Progress Note ---
Date of Encounter: 02/02/18 Time of Encounter: 16:30 - Assessment and plan (1) Acute respiratory failure with hypoxia Current Visit: Yes Status: Resolved Assessment and plan: Has resolved. Will check walk test at discharge as well. (2) COPD exacerbation Current Visit: Yes Status: Suspected Assessment and plan: Pt to have PFTs as outpatient. Will send with nebulizer and aerosols. (3) Pneumonia Current Visit: Yes Status: Suspected Assessment and plan: Continue abx at this time. Qualifiers: Pneumonia type: due to Pneumococcus Laterality: bilateral Lung location: lower lobe of lung Qualified Code(s): J13 - Pneumonia due to Streptococcus pneumoniae (4) Tobacco abuse Current Visit: Yes Status: Resolved Assessment and plan: Nicotine patch. (5) Anxiety Current Visit: Yes Status: Chronic Assessment and plan: Continue PRN Xanax. - Time Spent With Patient Total time spent is greater than 50% in coordination of care (as documented) at patient's floor/unit and/or counseling patient: - Subjective Interval history: Ms Fisher is currently admitted for acute hypoxic resp failure and presumed COPD and pneumonia. She remains moderate to high risk due to potential for worsening clinical status. Ms Fisher has been off oxygen today. She noticed some dizziness when walking. No fever or chills. Still with cough. No GI issues. at bedside. - Constitutional Vitals: Temp Pulse Resp BP Pulse Ox 97.5 F L 101 20 108/76 97 02/02/18 06:28 02/02/18 06:28 02/02/18 09:23 02/02/18 06:28 02/02/18 09:23 General appearance: Present: A&O X 3, pleasant, answers questions appropriately - Head Head exam: Present: normocephalic - Eye Eye exam: Present: conjuntiva pink - ENT ENT exam: Present: mucous membranes dry - Respiratory Respiratory exam: Present: wheezes. Absent: rales, rhonchi - Cardiovascular Cardiovascular exam: Present: RRR, tachycardia - GI/Abdominal GI/Abdominal exam: Present: soft. Absent: tenderness - Extremities Exam Extremities exam: Present: warm. Absent: tenderness - Neurological Exam Neurological exam: Present: alert, oriented X3 - Skin Skin exam: Present: dry, warm Internal Medicine: Result - Labs CBC & Chem 7: 02/02/18 04:47 02/02/18 04:47 Labs: Short CBC 02/02/18 Range/Units 04:47 WBC 21.9 H D (4.3-11.1) K/mcL Hgb 13.9 (11.5-15.4) g/dL Hct 41.7 (35.3-44.9) % Plt Count 316 (140-400) K/mcL BMP 02/02/18 04:47 Sodium 139 Potassium 4.3 Chloride 109 H Carbon Dioxide 23 BUN 17 Creatinine 0.61 Glucose 139 H Calcium 9.5 - ABG Interpretation ABG results: PT/INR, D-dimer D-Dimer 381 ng/mLFEU (0-500) 01/31/18 08:44 Consult Discharge Plan - Plan Referrals: Oriana Duarte CNP [Family Provider] - Candy Akhtar CNP [Primary Care Provider] - Prescriptions: Ipratropium/Albuterol Neb [Duoneb] 3 ml IH [id number] #100 inhsol levoFLOXacin [Levaquin] 500 mg PO DAILY #5 tablet predniSONE [PredniSONE] See Taper PO DAILY #30 tablet
--- NOTE | 2018-02-02 14:32 | Discharge Summary ---
- NOTES TO OUTPATIENT PROVIDER Notes to Outpatient Provider: Readmitted with wheezing and dyspnea. Concern for pneumonia. Improved with treatment. Anxious about health. Date of Encounter: 02/03/18 Time of Encounter: 16:31 - Discharge Diagnosis (1) Acute respiratory failure with hypoxia Priority: Primary Status: Resolved (2) COPD exacerbation Priority: Secondary Status: Suspected (3) Pneumonia Priority: Secondary Status: Suspected Qualifiers: Pneumonia type: due to Pneumococcus Laterality: bilateral Lung location: lower lobe of lung Qualified Code(s): J13 - Pneumonia due to Streptococcus pneumoniae (4) Tobacco abuse Priority: Secondary Status: Resolved (5) Anxiety Priority: Secondary Status: Chronic Hospital course: Ms. Fisher is a 57 year old female presented to ED with worsening dyspnea and wheezing. She had been hospitalized in the past and was following with pulmonary. She was to have PFTs and CT next week. She was subsequently admitted. Ms Fisher was admitted to [facility]. She was started on aerosols, abx, steroids and oxygen. She had improvement in her symptoms though she still had some wheezing. CT showed small nodules and atelctasis. Today she is able to ambulate without oxygen. She is afebrile and CXR negative. She will be discharged home with outpatient follow up. She'll complete abx and steroids. Discharge discussed with: patient - Time Spent with Patient Total time spent providing and/or coordinating discharge services: 42min - Discharge Medications Prescriptions: Ipratropium/Albuterol Neb [Duoneb] 3 ml IH [id number] #100 inhsol levoFLOXacin [Levaquin] 500 mg PO DAILY #5 tablet predniSONE [PredniSONE] See Taper PO DAILY #30 tablet Home Medications: ALPRAZolam [Xanax 0.5 MG Tablet] 0.5 mg PO HS 12/26/17 [History] Albuterol Sulfate [Proair Hfa] 1 - 2 puff IH Q4-6H PRN 12/26/17 [History] Nicotine Patch [Nicoderm] 21 mg TD DAILY #30 patch.td24 12/28/17 [Rx] Fluticasone Propionate Nasal [Flonase] 2 spr NS DAILY 01/31/18 [History] HYDROcodone BIT/Homatropine LQ [Hycodan Syrup] 5 mg PO Q6H PRN 01/31/18 [History ] Tiotropium Br/Olodaterol HCl [Stiolto Respimat Inhal [place]] 2 puff IH DAILY 02/14 [History] Ipratropium/Albuterol Neb [Duoneb] 3 ml IH [id number] #100 inhsol 02/02/18 [Rx] levoFLOXacin [Levaquin] 500 mg PO DAILY #5 tablet 02/02/18 [Rx] predniSONE [PredniSONE] See Taper PO DAILY #30 tablet 02/02/18 [Rx] Allergies/Adverse Reactions: 3 Allergy/AdvReac Type Severity Reaction Status Date / Time codeine AdvReac Itching Verified 01/31/18 08:21 Date of admission: 01/31/18 13:26 Primary care physician: Candy Akhtar CNP Discharging clinician: Adam Jaffe Anticipated date of discharge: 02/03/18 - Constitutional Vitals: Temp Pulse Resp BP Pulse Ox 97.5 F L 101 20 108/76 97 02/02/18 06:28 02/02/18 06:28 02/02/18 09:23 02/02/18 06:28 02/02/18 09:23 General appearance: Present: A&O X 3, pleasant, answers questions appropriately - Head Head exam: Present: normocephalic - Eye Eye exam: Present: conjuntiva pink - ENT ENT exam: Present: mucous membranes moist - Respiratory Respiratory exam: Present: wheezes. Absent: rales, rhonchi - Cardiovascular Cardiovascular exam: Present: RRR. Absent: tachycardia - GI/Abdominal GI/Abdominal exam: Present: soft. Absent: tenderness - Extremities Exam Extremities exam: Present: warm. Absent: tenderness - Neurological Exam Neurological exam: Present: alert, oriented X3 - Skin Skin exam: Present: dry, warm - Patient Status Disposition: Home, Self-Care Condition: Good Functional capacity at discharge: independent ambulation Overall status at discharge: patient is progressing back to baseline - Discharge Instructions Instructions: Prednisone (By mouth), Levofloxacin (By mouth), Ipratropium/ Albuterol (By breathing), Acute Respiratory Distress Syndrome (DC), Anxiety (DC) , Cigarette Smoking and Your Health, Regional Liaison (GEN) Follow Up With: Oriana Duarte CNP [Family Provider] - Candy Akhtar CNP [Primary Care Provider] - Preston Marx MD [Partnered Physician] - (Please arrange for follow up in 1-2 weeks. Thanks) - Diet and Activity Activity: increase activity as tolerated Diet: advance to your usual diet
[2018-02-02] MEDS: ALPRAZolam 0.5 MG TABLET PO SCH (21:03)
[2018-02-03] MEDS: Ipratropium/Albuterol Neb 3 ML IH SCH ×3 (04:38→15:50)
[2018-02-03 04:51] LABS: Hematocrit 41.5 % (35.3-44.9); Hemoglobin 13.9 g/dL (11.5-15.4); Mean Corpuscular HGB Conc 33.5 g/dL (31.6-35.5); Mean Corpuscular Hemoglobin 30.5 pg (28.0-33.3); Mean Corpuscular Volume 91.2 fL (83.0-100.0); Platelet Count 301 K/mcL (140-400); Red Blood Count 4.55 M/mcL (3.82-4.97); Red Cell Distribution Width 13.9 % (11.5-14.5)
[2018-02-03 05:13] LABS: BUN/Creatinine Ratio 28 (6-26); Blood Urea Nitrogen 16 mg/dL (6-20); Calcium 9.5 mg/dL (8.6-10.3); Carbon Dioxide 24 mEq/L (23-29); Chloride 109 mEq/L (98-107); Glucose 158 mg/dL (70-105); Osmolality,Calculated 296 (280-300); Potassium 4.2 mEq/L (3.5-5.1); Sodium 141 mEq/L (136-145); eGFR For African Americans > 60 (> 60); eGFR For Non-African Americans > 60 (> 60)
[2018-02-03] MEDS: *HR* Enoxaparin 40 MG/0.4 ML SYRINGE SQ SCH (06:45)
[2018-02-03 07:34] VITALS: BP 104/68
[2018-02-03] MEDS: Nicotine 14 MG PATCH.TD24 TD SCH (08:35)
[2018-02-03] MEDS: Levofloxacin 500 MG/100 ML 500 MG/100 ML BAG IVPB SCH (08:35)
[2018-02-03] MEDS: MethylPREDNISolone 40 MG/ML VIAL IVP SCH (08:36)
[2018-02-03] MEDS: Fluticasone Propionate Nasal 50 MCG/SPRAY BOTTLE NS SCH (09:45)
--- NOTE | 2018-02-03 13:46 | Electrocardiograph Report ---
[place] [id number] Test Date: 2018-01-31 Pat Name: Bety Fisher Department: 103 Room: [facility] Gender: F [employer] Consultant: AARON : 1960 Requested By: Kashif Yi Order Number: [id number] Reading MD: Shelly More Measurements Intervals [place] Rate: 117 P: 62 UT: 149 QRS: 33 QRSD: 75 T: 57 QT: 272 QTc: 342 Interpretive Statements SINUS TACHYCARDIA ABNORMAL RHYTHM ECG Electronically Signed On 02-03-2018 13:44:46 EDT by Shelly More
[2018-02-03] MEDS ORDERED: MethylPREDNISolone 40 MG/ML VIAL IVP ONE (16:45)
== END 2018-02-03 17:16 | disposition home or self-care (01) | DRG 189 ==
LOC: EMEROO 08:19 → 2NENU 08:19 → OBSVTOIN 13:26 → 2NENU 14:10
PROVIDERS: ADMIT Internal Medicine; ATTEND Internal Medicine